=== PATIENT | male | born 1980 | race Caucasian/White ===

== ENCOUNTER 2017-03-23 08:08 | Emergency (ER) | payer OTHER ==
[~2017-03-23] VITALS: Ht 172.7 cm; Wt 120.0 kg
[2017-03-23 08:13] VITALS: BP 128/87
[2017-03-23] MEDS ORDERED: LORA-702 PO (08:33)
[2017-03-23] MEDS ORDERED: DEXAMETHASONE 4 MG TABLET ONE (08:59)
[2017-03-23] MEDS ORDERED: DEXAMETHASONE 4 MG/ML, 1ML PO ONE (09:00)
[2017-03-23 09:28] LABS: BLOOD UREA NITROGEN 8 mg/dL (7-18)
[2017-03-23] MEDS ORDERED: DEXAMETHASONE 4 MG TABLET PO ONE (09:30)
== END 2017-03-23 10:26 | disposition home or self-care (01) ==
LOC: ED 09:35
DX: R05 Cough (principal); J30.2 Other seasonal allergic rhinitis; Z88.0 Allergy status to penicillin; Z91.041 Radiographic dye allergy status
CPT/HCPCS: 36415; 71020; 80048; 82040; 85025; 99285